=== PATIENT | male | born 1980 | race Caucasian/White ===

== ENCOUNTER → 2017-06-23 | Outpatient (CLI) | payer OTHER ==
[~2017-06-23] MED LIST: CIPR500 PO; HYDACE5 PO; HYDMOR2 PO; IBUP600 PO; IBUP800 PO; META800 PO; OXYACE5T PO; PROM25 PO; RXOXYACE PO; SULTRISS PO; TAMS.4ER PO
[2017-06-25 17:08] LABS: CHLAMYDIA TRACHOMATIS, NAA Negative (Negative); NEISSERIA GONORRHOEAE, NAA Positive (Negative)
== END ==
LOC: LAB 09:55 → LAB SHORT 09:55
PROVIDERS: Registered Nurse
DX: R36.9 Urethral discharge, unspecified (principal)
CPT/HCPCS: 87491; 87591

== ENCOUNTER → 2018-04-04 | Outpatient (CLI) | payer BC, OTHER | LOC: LAB 15:30 → LAB SHORT 15:30 | DX: K21.9 Gastro-esophageal reflux disease without esophagitis (principal) | CPT/HCPCS: 87338 ==

== ENCOUNTER 2022-02-05 20:01 | Emergency (ER) | payer BC, OTHER ==
[~2022-02-05] VITALS: Ht 175.3 cm; Wt 81.7 kg
== END 2022-02-05 22:55 | disposition home or self-care (01) ==
LOC: ER 20:01
DX: L50.0 Allergic urticaria (principal); T39.315A Adverse effect of propionic acid derivatives, initial encounter; J06.9 Acute upper respiratory infection, unspecified; Z79.899 Other long term (current) drug therapy
CPT/HCPCS: 87430; A9270

== ENCOUNTER 2022-09-24 03:17 | Emergency (ER) | payer BC, OTHER ==
[~2022-09-24] VITALS: Ht 177.8 cm; Wt 74.8 kg
[2022-09-24 05:30] VITALS: BP 142/95
[2022-09-24 05:41] LABS: Source, Urine Clean Catch
[2022-09-24 05:45] LABS: Appearance, Urine Clear (Clear); Bilirubin, Urine Neg (Neg); Blood, Urine Neg (Neg); Color, Urine Yellow (P-Yellow); Glucose Qualitative, Urine Neg (Neg); Ketones, Urine Neg (Neg); Leukocyte Esterase, Urine Neg (Neg); Nitrite, Urine Neg (Neg); Protein, Urine Neg (Neg); Urobilinogen, Urine NORM (Normal); pH, Urine 6.5 (5.0-8.0)
[2022-09-24] MEDS ORDERED: LEVFLO500 PO (06:14)
[2022-09-24] MEDS ORDERED: Percocet 5-3251 EACH PO (06:15)
== END 2022-09-24 06:26 | disposition home or self-care (01) ==
LOC: ER 03:17
PROVIDERS: Student in an Organized Health Care Education/Training Program
DX: N45.1 Epididymitis (principal); F17.210 Nicotine dependence, cigarettes, uncomplicated; Z88.6 Allergy status to analgesic agent; W19.XXXA Unspecified fall, initial encounter
CPT/HCPCS: 76870; 81003; 99284-25; A9270

== ENCOUNTER → 2022-11-20 | Outpatient (CLI) | payer BC, OTHER ==
[~2022-11-20] MED LIST changes: +LEVFLO500 PO; +Percocet 5-3251 EACH PO
== END | disposition home or self-care (01) ==
LOC: LAB 18:00 → LAB SHORT 18:00
DX: N39.0 Urinary tract infection, site not specified (principal)
CPT/HCPCS: 87077; 87086; 87186

== ENCOUNTER 2023-08-05 01:13 | Emergency (ER) | payer BC, OTHER ==
[~2023-08-05] VITALS: Ht 175.3 cm; Wt 72.6 kg
[2023-08-05 01:18] VITALS: BP 138/98
[2023-08-05 02:50] LABS: Source, Urine Clean Catch
[2023-08-05 02:55] LABS: Bilirubin, Urine Neg (Neg); Blood, Urine Neg (Neg); Glucose Qualitative, Urine Neg (Neg); Ketones, Urine Neg (Neg); Leukocyte Esterase, Urine Neg (Neg); Nitrite, Urine Neg (Neg); Protein, Urine Neg (Neg); Specific Gravity, Urine 1.025 (1.003-1.022); Urobilinogen, Urine NORM (Normal)
[2023-08-05 03:01] LABS: Appearance, Urine Clear (Clear); Color, Urine Yellow (P-Yellow)
[2023-08-05] MEDS ORDERED: LevoFLOXacin 500 MG Tab PO ONE (03:25)
[2023-08-05] MEDS ORDERED: CefTRIAXone 500 MG Vial IM ONE (03:25)
[2023-08-05] MEDS ORDERED: LEVFLO500 PO (03:29)
== END 2023-08-05 03:52 | disposition home or self-care (01) ==
LOC: ER 01:13
PROVIDERS: Emergency Medicine
DX: N45.1 Epididymitis (principal); Z88.6 Allergy status to analgesic agent
CPT/HCPCS: 76870; 81003; 96372; 99284-25; A9270; J0696

== ENCOUNTER 2024-10-10 21:06 | Emergency (ER) | payer BC, OTHER ==
[~2024-10-10] VITALS: Ht 175.3 cm; Wt 70.3 kg
[2024-10-10 21:17] VITALS: BP 120/79
[2024-10-10] MEDS ORDERED: Trimethoprim/Sulfamethoxazole DS Tab PO ONE (22:05)
[2024-10-10] MEDS ORDERED: BACTRIM DS TAB1 EAC1 PO (22:09)
== END 2024-10-10 22:13 | disposition home or self-care (01) ==
LOC: ER 21:06
DX: S80.862A Insect bite (nonvenomous), left lower leg, initial encounter (principal); Z88.6 Allergy status to analgesic agent; W57.XXXA Bitten or stung by nonvenomous insect and other nonvenomous arthropods, initial encounter
CPT/HCPCS: 99282; A9270